=== PATIENT | male | born 1975 | race Caucasian/White ===

== ENCOUNTER → 2017-08-11 | Outpatient (CLI) | payer OTHER ==
[~2017-08-11] MED LIST: IOPAMIDOL (ISOVUE-300) 100 ML BTL ONE
== END ==
LOC: CIMAGING 08:39
PROVIDERS: ATTEND Family Medicine Sports Medicine
DX: R10.9 Unspecified abdominal pain (principal)
CPT/HCPCS: 74177-PO; Q9967